=== PATIENT | male | born 1975 | race African-American/Black ===

== ENCOUNTER 2016-09-12 06:10 | Emergency (ER) | payer SELFPAY ==
--- NOTE | 2016-09-12 06:52 | ED Physician Documentation ---
Male Genitourinary Problems - HISTORIAN Historian: patient - HPI Stated Complaint: Scrotal Abscess Chief Complaint: Male Genitourinary Problems Onset: days ago (3-4) Duration: better Further Comments: yes (41 year old male presents with complaints of right scrotal pain and "bump". States the area has gone down, but is more painful. Started 3-4 days ago. Denies unprotected sexual intercourse.) - Associated Symptoms Problems Urinating: none Penile Discharge Descripiton: denies: watery, thin, thick, curd Testicular Pain: R testicle Penile Pain: No Penile Swelling: No Flank Pain: none Abdominal Pain: none - Sexual History Sexual History: non-contributory - ROS CONST: none GI/: denies: nausea, vomiting MS/SKIN/LYMPH: none CVS/RESP: none EYES/ENT: none NEURO/PSYCH: denies: anxiety, depression - PAST HX Past History: hypertension Cardiac Disease: none Surgeries/Procedures: none Allergies/Adverse Reactions: Allergies Allergy/AdvReac Type Severity Reaction Status Date / Time No Known Allergies Allergy Verified 09/12/16 06:23 Home Medications: Ambulatory Orders Medication Instructions Recorded Hydrochlorothiazide [Hydrodiuril] 25 mg PO DAILY 09/12/16 Levofloxacin [Levaquin] 500 mg PO DAILY #10 tablet 09/12/16 - SOCIAL HX Smoking History: non-smoker - FAMILY HX Family History: denies: none - VITAL SIGNS Vital Signs: Vital Signs Temp Pulse Resp BP Pulse Ox 98.7 F 88 16 140/103 99 09/12/16 06:10 09/12/16 07:15 09/12/16 07:15 09/12/16 07:15 09/12/16 07:15 - REVIEWED ASSESSMENTS Nursing Assessment Reviewed: Yes Vitals Reviewed: Yes Progress - Progress Progress: Will cover possible STD with outpatient antibiotics. Rocephin IM given in ER. Reviewed discharge instructions. List of PCPs provided. ED Results Lab/Radiology - Orders Orders: ED Orders Category Date Time Status Lidocaine 1% 5ml(IM or SUTURE) [Xylocaine] Med 09/12/16 06:53 Discontinued 50 mg IJ NOW ONE cefTRIAXone SODIUM [Rocephin] Med 09/12/16 06:53 Discontinued 250 mg IM NOW ONE Male Genitourinary Problems - EXAM General Appearance: mild distress Abdomen: non-tender, no organomegaly Genitals: nml inspection, testicles nml palp., epididymal tenderness, circumcised, other (2 cm firm round palpable abscess on distal posterior area of right testicle, no drainage) Cremasteric Reflexes: strong Respiratory: no resp distress, chest non-tender, breath sounds normal CVS: reg rate & rhythm, heart sounds normal, equal pulses, no murmur, no gallop , PMI nml, no JVD, no friction rub, 24 Neuro/Psych: oriented X3, CN's nml as tested, motor nml, sensation nml, mood/ affect nml Skin: normal color, warm/dry, NR, INT, PAL, DR Discharge Clincal Impression: Scrotal abscess Clincal Impression: (Ruled Out): Abscess Prescriptions: Levofloxacin [Levaquin] 500 mg PO DAILY #10 tablet Referrals: Primary Doctor,No [Primary Care Provider] - 2 Days Additional Instructions: [employer] your prescription and start it today. Follow up with your primary care doctor if your symptoms become worse or do not resolve. Home Medications: Ambulatory Orders Hydrochlorothiazide [Hydrodiuril] 25 mg PO DAILY 09/12/16 Levofloxacin [Levaquin] 500 mg PO DAILY #10 tablet 09/12/16 Condition: Stable Disposition: HOME, SELF-CARE Decision to Admit: NO Decision Time: 06:51
[2016-09-12] MEDS ORDERED: Lidocaine 1% 5ml(IM or SUTURE)(PAIN CLINIC) IJ ONE (06:53)
[2016-09-12 07:18] VITALS: BP 140/103
== END 2016-09-12 07:15 | disposition home or self-care (01) ==
LOC: ED 06:10
DX: N49.2 Inflammatory disorders of scrotum (principal); Z20.2 Contact with and (suspected) exposure to infections with a predominantly sexual mode of transmission
CPT/HCPCS: 96372; 99283